=== PATIENT | female | born 1950 | race Caucasian/White ===

== ENCOUNTER 2024-06-13 15:25 | Outpatient (OUT) | payer MEDICARE, OTHER, SELFPAY ==
[2024-06-13 16:44] LABS: Free T3 2.36 pg/mL (2.18-3.98); Thyroid Stimulating Hormone 1.846 uIU/mL (0.358-3.740)
[2024-06-13 17:13] LABS: Free T4 0.86 ng/dL (0.76-1.46)
[2024-06-15 04:07] LABS: DHEA-Sulfate 88.6 ug/dL (20.4-186.6); Estradiol 32.1 pg/mL (0.0-54.7); Progesterone 0.5 ng/mL (.); Thyroid Peroxidase (TPO) Ab 13 IU/mL (0-34)
[2024-06-18 16:08] LABS: Estrone, Serum 28 pg/mL (0-125)
[2024-06-19 21:12] LABS: Estrogens, Total 186 pg/mL (40-244)
[2024-06-21 10:08] LABS: Reverse T3, Serum 15.6 ng/dL (9.2-24.1)
[2024-06-22 01:07] LABS: Free Testosterone(Direct) 0.6 pg/mL (0.0-4.2); Testosterone 19 ng/dL (3-67)
== END 2024-06-13 15:26 | disposition home or self-care (01) ==
PROVIDERS: PCP Specialist; Visit Provider Specialist
DX: E34.9 Endocrine disorder, unspecified (principal); Z13.29 Encounter for screening for other suspected endocrine disorder
CPT/HCPCS: 36415; 82306; 82533; 82627; 82670; 82672; 82679; 84144; 84402; 84403; 84439; 84443; 84481; 84482; 86376